=== PATIENT | male | born 1985 | race Caucasian/White ===

== ENCOUNTER 2018-02-07 20:57 | Emergency (ER) | payer BC ==
[~2018-02-07] VITALS: Ht 177.8 cm; Wt 108.9 kg
[2018-02-07 21:07] VITALS: BP_SYST 135
[2018-02-07 22:51] VITALS: BP_SYST 139
== END 2018-02-07 22:51 | disposition home or self-care (01) ==
LOC: SED 20:57
DX: S16.1XXA Strain of muscle, fascia and tendon at neck level, initial encounter (principal); V49.9XXA Car occupant (driver) (passenger) injured in unspecified traffic accident, initial encounter; Y93.89 Activity, other specified; Y92.410 Unspecified street and highway as the place of occurrence of the external cause; Y99.8 Other external cause status
CPT/HCPCS: 72125-TC; 99284

== ENCOUNTER 2020-11-03 00:43 | Emergency (ER) | payer BC ==
[~2020-11-03] VITALS: Ht 177.8 cm; Wt 113.4 kg
[2020-11-03 00:50] VITALS: BP_SYST 161
--- NOTE | 2020-11-03 00:50 | NUR ---
PT TO TENT FOR EVALUATION
--- NOTE | 2020-11-03 01:25 | NUR ---
DR. BASILIO TO BEDSIDE FOR EVALUATION
--- NOTE | 2020-11-03 01:30 | NUR ---
TETRACAINE ADMINISTERED BY DR. BASILIO TO BILATERAL EYES AND FLUSHED WITH NS
[2020-11-03] MEDS ORDERED: TETRACAINE HCL/PF 0.5% OPHTHALMIC DROPS 4 ML OP ONE (01:31)
--- NOTE | 2020-11-03 01:35 | NUR ---
BP RECHECK 148/92
[2020-11-03 01:40] VITALS: BP_SYST 148
--- NOTE | 2020-11-03 01:40 | NUR ---
Patient given written and verbal discharge instructions and verbalizes understanding. DR. CHETNA SIMMONS MD discussed with patient the results and treatment provided. Patient in stable condition. ID arm band removed. Rx of ARTIFICIAL TEARS given. Patient educated on pain management and to follow up with PMD. Pain Scale 0/10. Opportunity for questions provided and answered. Medication side effect fact sheet provided.
== END 2020-11-03 01:40 | disposition home or self-care (01) ==
LOC: SED 00:43
DX: U07.1 COVID-19 (principal); J18.9 Pneumonia, unspecified organism
CPT/HCPCS: 99283

== ENCOUNTER 2023-05-15 21:43 | Emergency (ER) | payer BC ==
[~2023-05-15] VITALS: Ht 177.8 cm; Wt 127.0 kg
[2023-05-15 21:53] VITALS: BP_SYST 125; PULSE 86; RESP 17; TEMP 97.1; O2SAT 96
--- NOTE | 2023-05-15 21:57 | NUR ---
S/P FALL 05/09/23, LEFT STOVALL SWELLING/DISCOMFORT (THROBBING), DENIES PAIN
--- NOTE | 2023-05-15 22:01 | NUR ---
PATIENT PLACED IN ED BED 6, REPORT GIVEN TO MELISA ALEMAN
--- NOTE | 2023-05-15 22:04 | NUR ---
PT BIB SELF FROM HOME C/O LEFT LOWER LEG AND ANKLE SWELLING X2DAYS. 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 PT STATES PAIN IS 4/10 WHEN WALKING. PT DENIES PREVIOUS HX. PT RESTING IN BED WITH RAILS UP VSS
--- NOTE | 2023-05-15 22:07 | NUR ---
ER at bedside examining patient.
[2023-05-15] MEDS ORDERED: DIPHTH,PERTUSS(ACELL),TET VAC 0.5 ML VIAL (Tdap) I.M. ONE (22:15)
[2023-05-15] MEDS ORDERED: KETOROLAC TROMETHAMINE 15 MG VIAL IM ONE (22:15)
[2023-05-15] MEDS ORDERED: CEPH-548 PO (22:16)
[2023-05-15] MEDS ORDERED: CIPR500T5 PO (22:16)
[2023-05-15] MEDS ORDERED: IBUP-1969 PO (22:16)
--- NOTE | 2023-05-15 22:25 | NUR ---
PT DECLINED TDAP VACCINE FOR PERSONAL REASONS.
[2023-05-15 22:35] VITALS: BP_SYST 125; PULSE 86; RESP 17; TEMP 97.1; O2SAT 96
--- NOTE | 2023-05-15 22:36 | NUR ---
Patient given written and verbal discharge instructions and verbalizes understanding. ER MD discussed with patient the results and treatment provided. Patient in stable condition. ID arm band removed. Rx of CEPHALEXIN, CIPRO AND IBUPROFEN given. Patient educated on CELLULITIS and to follow up with PMD. Pain Scale . Opportunity for questions provided and answered. Medication side effect fact sheet provided.
== END 2023-05-15 22:35 | disposition home or self-care (01) ==
LOC: SED 21:43
DX: L03.116 Cellulitis of left lower limb (principal); M79.662 Pain in left lower leg; Z79.899 Other long term (current) drug therapy
CPT/HCPCS: 99283; 96372; J1885; 90715